=== PATIENT | female | born 1970 | race Caucasian/White ===

== ENCOUNTER 2018-06-28 05:32 | Day surgery (SDC) | payer OTHER ==
[2018-06-27 16:24] VITALS: Ht 152.4 cm; Wt 91.0 kg
[~2018-06-28] VITALS: Ht 152.4 cm; Wt 91.0 kg
[2018-06-28] VITALS (10 sets, daily range): BP systolic 105–153; BP diastolic 69–87; PULSE 73–102; RESP 16–24
--- NOTE | 2018-06-28 06:51 | PREAC ---
Date/Time of Note Date/Time of Note DATE: 06/28/18 TIME: 06:50 Anesthesia Eval and Record Evaluation Time Pre-Procedure Interview DATE: 06/28/18 TIME: 06:50 Age 48 Sex female NPO: 8 hrs Preoperative diagnosis vaginal bleeding Planned procedure hysteroscopy, D and C Past Medical History Past Medical History: None GI: Obesity Surgery & Anesthesia Issues No known issue Meds Anticoagulation: No Beta Michelle within 24 hr: No Reason Beta Michelle not given: Pt. not on B-Michelle No Active Prescriptions or Reported Meds Current Medications Lactated Ringer's 1,000 ml @ 125 mls/hr Q8H IV Last administered on 06/28/18at 06:37; Admin Dose 125 MLS/HR; Start 06/28/18 at 07:00; Stop 06/28/18 at 14:59 Cefazolin Sodium/ Dextrose 50 ml @ 100 mls/hr PREOP IVPB ; Start 06/28/18 at 07:00; Stop 06/28/18 at 16:00 Meds reviewed: Yes Allergies Coded Allergies: No Known Drug Allergies (Verified Allergy, Unknown, 06/28/18) Allergies Reviewed: Yes Labs/Studies Labs Reviewed: Reviewed by anesthesiologist test: Negative Studies: ECG Pre-procedure Exam Last vitals Vital Signs Date Temp Pulse Resp B/P (MAP) Pulse Ox O2 O2 Flow FiO2 Time Delivery Rate 06/28/18 98.9 102 18 153/87 98 Room Air 06:14 (109) Airway: Adequate mouth opening, Adequate thyromental dist Mallampati: Mallampati II Teeth: Normal Lung: Normal Heart: Normal ASA Physical Status ASA physical status: 2 Emergency: None Planned Anesthetic General/MAC: ETT Planned Pain Management Parenteral pain med, Local by surgeon Pre-operative Attestations Prior to commencing anesthesia and surgery, the patient was re-evaluated, there was verification of: *The patient's identity *The results of appropriate recent lab work and preoperative vital signs *The above evaluation not changing prior to induction *Anesthetic plan, risk benefits, alternative and complications discussed with patient/family; questions answered; patient/family understands, accepts and wishes to proceed. JED OAKES June 28, 2018 06:51
[2018-06-28] MEDS ORDERED: DESFLURANE 15 MIN ONE (07:00)
[2018-06-28] MEDS ORDERED: CEFAZOLIN 2 GM/50 ML (PMX) 50 ML IVPB SCH (07:00)
[2018-06-28] MEDS ORDERED: LACTATED RINGER'S 1,000 ML IV SCH (07:00)
[2018-06-28] MEDS ORDERED: MIDAZOLAM 1 MG/ML 2 ML INJ ONE (07:09)
[2018-06-28] MEDS ORDERED: FENTAnyl 50 MCG/ML VIAL ONE (07:09)
[2018-06-28] MEDS ORDERED: CEFAZOLIN 1 GM INJ ONE (07:10)
[2018-06-28] MEDS ORDERED: PROPOFOL 20 ML ONE (07:10)
[2018-06-28] MEDS ORDERED: SUCCINYLCHOLINE CHLORIDE 100 MG/5 ML SYG IV ONE (07:10)
[2018-06-28] MEDS ORDERED: LIDOCAINE 2% (SDV) 5 ML INJ ONE (07:10)
[2018-06-28] MEDS ORDERED: ROCURONIUM 50 MG INJ ONE (07:58)
[2018-06-28] MEDS ORDERED: DEXAMETHASONE 4 MG/ML 5 ML INJ ONE (08:02)
[2018-06-28] MEDS ORDERED: ONDANSETRON 4 MG INJ ONE (08:02)
[2018-06-28] MEDS ORDERED: METOCLOPRAMIDE 10 MG INJ ONE (08:02)
[2018-06-28] MEDS ORDERED: FAMOTIDINE 20 MG INJ ONE (08:03)
[2018-06-28] MEDS ORDERED: SUGAMMADEX SODIUM 200 MG/2 ML VIAL IV ONE (08:05)
[2018-06-28] MEDS ORDERED: ONDANSETRON 4 MG INJ IV PRN (08:30)
[2018-06-28] MEDS ORDERED: OXYCODONE/ACETAMINOPHEN (5/325) TAB PO PRN ×2 (08:30)
[2018-06-28] MEDS ORDERED: ALBUTEROL 0.083% (NEB) 2.5 MG/3 ML AMP HHN PRN (08:30)
[2018-06-28] MEDS ORDERED: FENTAnyl 50 MCG/ML VIAL IV PRN ×3 (08:30)
[2018-06-28] MEDS ORDERED: MEPERIDINE 25 MG INJ IV PRN (08:30)
[2018-06-28] MEDS ORDERED: LABETALOL HCL 20MG INJ IV PRN (08:30)
--- NOTE | 2018-06-28 09:00 | PAC ---
Date/Time of Note Date/Time of Note DATE: 06/28/18 TIME: 08:59 Post-Anesthesia Notes Post-Anesthesia Note Last documented vital signs pacu: BP 119/69 spo2 98% hr 73 rr 16 temp 98.8 Vital Signs Date Temp Pulse Resp B/P (MAP) Pulse Ox O2 O2 Flow FiO2 Time Delivery Rate 06/28/18 98.9 102 18 153/87 98 Room Air 06:14 (109) Activity: WNL Respiratory function: WNL Cardiovascular function: WNL Mental status: Baseline Pain reasonably controlled: Yes Hydration appropriate: Yes Nausea/Vomiting absent: Yes JED OAKES June 28, 2018 09:00
--- NOTE | 2018-06-28 09:41 | OPR ---
Date/Time of Note Date/Time of Note DATE: 06/28/18 TIME: 09:16 Operative Report Procedure Date: June 28, 2018 Preoperative Diagnosis Menometrorrhagia Fibroid Uterus Postoperative Diagnosis same Operation/Procedure Performed Hysteroscopic myomectomy Dilation and Curettage Surgeon Nile Arora MD [employer] none Anesthesia Type: general Estimated Blood Loss: minimal Transfusion none Specimen EMC, Myoma Grafts/Implants none Tubes/Drains none Complications none Pt Condition Post Procedure: stable Disposition: PACU Procedure Description CONSENT: Please see preoperative notes from my office for the consent process. DESCRIPTION OF PROCEDURE: She was taken to the operating room and general anesthesia was induced. She was prepped and draped in the usual sterile fashion. Surgical time out was done. The patient and procedure were identified. The anterior lip of the cervix was grasped with a single-tooth tenaculum and dilated to size 6 Hegar dilators. The hysteroscope Symphion was inserted and the endometrial cavity was visualized clearly. At this time the resectoscope was inserted. 3 cm submucosal myoma visualized at the fundal area. Myoma was resected using Truclear resectoscopy. Dilatation and curettage was done. Pathology was sent to the lab. The tenaculum was removed and there was no bleeding from the tenaculum site. The patient tolerated the procedure well. NILE ARORA MD June 28, 2018 09:39
--- NOTE | 2018-06-29 16:18 | RADRPT ---
Vent Rate: 80 bpm RR Interval: 748 msec WA Interval: 159 msec QRS Duration: 86 msec QT Interval: 379 msec QTC Interval: 438 msec P-R-T [place]: 44 - 3 - 42 degrees Sinus rhythm...normal P axis, V-rate 50- 99 Electronically Signed By: Leno Rubin
== END 2018-06-28 11:28 | disposition home or self-care (01) ==
LOC: SDS 05:32
PROVIDERS: ATTEND Specialist
DX: N92.1 Excessive and frequent menstruation with irregular cycle (principal); D25.9 Leiomyoma of uterus, unspecified; E66.9 Obesity, unspecified; Z68.39 Body mass index [BMI] 39.0-39.9, adult
CPT/HCPCS: 58120; 58561; 88305; 93005; J0690; J1100; J2250; J2405; J2765; J3010; Z7512; Z7610